=== PATIENT | female | born 1940 | race Caucasian/White ===

== ENCOUNTER 2022-11-04 16:37 | Emergency (ER) | payer OTHER ==
[~2022-11-04] VITALS: Ht 162.6 cm; Wt 54.4 kg
[2022-11-04 16:41] VITALS: BP_SYST 127; PULSE 103; RESP 16; TEMP 99; O2SAT 94; O2SAT 95
[2022-11-04] MEDS ORDERED: HYDROcodone/ACETAMIN 7.5-325 MG TAB PO ONE (17:15)
[2022-11-04] MEDS ORDERED: HYDR-3921 PO (21:13)
[2022-11-04 21:35] VITALS: BP_SYST 125; PULSE 108; RESP 20; TEMP 98; O2SAT 98
== END 2022-11-04 21:35 | disposition home or self-care (01) ==
LOC: SED 16:37
DX: S52.592A Other fractures of lower end of left radius, initial encounter for closed fracture (principal); S63.392A Traumatic rupture of other ligament of left wrist, initial encounter; Z79.899 Other long term (current) drug therapy; X58.XXXA Exposure to other specified factors, initial encounter; Y93.89 Activity, other specified; Y92.89 Other specified places as the place of occurrence of the external cause; Y99.8 Other external cause status
CPT/HCPCS: 99283